=== PATIENT | male | born 1950 | race African-American/Black ===

== ENCOUNTER 2017-02-05 11:35 | Emergency (ER) | payer MEDICARE, BC ==
[2017-02-05 11:47] VITALS: TEMP 98.4; BMI 30.5
[2017-02-05] MEDS ORDERED: Albuterol-Ipratrop 3 mg / 0.5 (3 ml) UD IH STA (12:13)
--- NOTE | 2017-02-05 12:18 | ED PDOC ---
Arrival/HPI - General Chief Complaint: Shortness Of Breath Time Seen by Provider: 02/05/17 11:40 Historian: Patient - History of Present Illness Narrative History of Present Illness (Text): 02/05/17 12:15 Patient is a 66 yo male presents to ED with history of chest pain intermittently for the past two weeks. He reports developing left arm pain two weeks ago worse with movements, which resolved after taking Tylenol. He denies any known injury or trauma although patient reports arm pain now resolved. However over past two weeks he has developed progressive shortness of breath and left sided chest pain. He states pain was worse with coughing. Denies hemoptyis. Denies fevers. Denies pleuritic pain. Shortness of breath worse with exertion or movements. Denies calf pain or swelling. Denies headaches, denies fevers. Denies recent travel. States that he quit smoking when he was 20 years old. He denies recent prolonged travel. He denies any travel out of the country. Patient was evaluated by his PMD Dr. Reyes prior to arrival. PMD states patient noted to be short of breath on exam, sent from office for further evaluation. Time/Duration: > week Symptom Onset: Gradual Past Medical History - Cardiac Hx Cardiac Disorders: Yes Hx Hypertension: Yes Hx Pacemaker: No - Pulmonary Hx Respiratory Disorders: No - Neurological Hx Neurological Disorder: No Hx Paralysis: No - HEENT Hx HEENT Disorder: No - Renal Hx Renal Disorder: No - Endocrine/Metabolic Hx Endocrine Disorders: Yes Hx Diabetes Mellitus Type 2: Yes - Hematological/Oncological Hx Blood Disorders: Yes Hx Blood Transfusions: Yes Hx Blood Transfusion Reaction: No - Integumentary Hx Dermatological Disorder: No - Musculoskeletal/Rheumatological Hx Musculoskeletal Disorders: No - Gastrointestinal Hx Gastrointestinal Disorders: No - Genitourinary/Gynecological Hx Genitourinary Disorders: No - Psychiatric Hx Psychophysiologic Disorder: No Hx Emotional Abuse: No Hx Physical Abuse: No Hx Substance Use: No - Surgical History Hx Joint Replacement: Yes (knee) Hx Orthopedic Surgery: Yes - Anesthesia Hx Anesthesia Reactions: No Hx Malignant Hyperthermia: No - Suicidal Assessment Feels Threatened In Home Enviroment: No Family/Social History Family/Social History: denies: CAD/[place] Smoking Status: Former Smoker Hx Alcohol Use: No Hx Substance Use: No Allergies/Home Meds Allergies/Adverse Reactions: Allergies No Known Allergies Allergy (Verified 02/05/17 11:47) Home Medications: Home Meds Medication Instructions Recorded Confirmed Glimepiride [Amaryl] 4 mg PO BID 02/20/15 02/05/17 Metformin HCl [Metformin] 1,000 mg PO BID 02/20/15 02/05/17 Metoprolol Succinate [Toprol XL] 100 mg PO BID 02/20/15 02/05/17 Pregabalin [Lyrica] 100 mg PO BID 02/20/15 02/05/17 Aspirin [Aspirin EC] 325 mg PO DAILY 02/05/17 02/05/17 Atorvastatin [Lipitor] 10 mg PO DAILY 02/05/17 02/05/17 Lisinopril [Zestril] 10 mg PO DAILY 02/05/17 02/05/17 hydroCHLOROthiazide [Hydrodiuril] 25 mg PO DAILY 02/05/17 02/05/17 Review of Systems - Review of Systems Constitutional: Fatigue. absent: Fevers Eyes: absent: Vision Changes ENT: absent: Hearing Changes Respiratory: SOB. absent: Cough Cardiovascular: Chest Pain (with coughing), GUPTA. absent: Palpitations, Edema, Calf Pain, Orthopnea Gastrointestinal: absent: Abdominal Pain Genitourinary Male: absent: Dysuria, Frequency Musculoskeletal: absent: Back Pain Skin: Skin Lesions (right reina). absent: Rash Neurological: absent: Headache, Dizziness Endocrine: absent: Polyuria Hemo/Lymphatic: absent: Easy Bleeding, Easy Bruising Physical Exam Vital Signs Reviewed: Yes Vital Signs Temp Pulse Pulse Resp BP BP Pulse Ox 02/05/17 15:14 0 L 0 L 51/22 L 0 L 02/05/17 15:08 0 L 5 L 78/30 L 91 L 02/05/17 14:56 0 L 6 L 72/59 L 93 L 02/05/17 14:40 0 L 8 L 84/46 L 95 02/05/17 14:33 0 L 13 90/26 L 95 02/05/17 14:22 118 H 104/46 L 95 02/05/17 14:02 116 H 30 H 142/89 95 02/05/17 13:31 99 H 17 156/101 H 90 L 02/05/17 13:13 86 18 153/111 H 97 02/05/17 11:50 95 H 16 164/98 H 02/05/17 11:46 98.4 F 95 H 18 164/98 H 95 Temperature: Afebrile Respiratory Rate: Tachypneic Appearance: Positive for: Non-Toxic Pain Distress: Mild Finger Stick Blood Glucose: 240 - Systems Exam Head: Present: Atraumatic Pupils: Present: PERRL Extroacular Muscles: Present: EOMI Mouth: Present: Moist Mucous Membranes Pharnyx: No: ERYTHEMA Nose (Internal): Present: Normal Inspection Neck: Present: Normal Range of Motion Respiratory/Chest: Present: Other (mild expiratory wheezing, rales at left base , mildly tachypneic) Cardiovascular: Present: Regular Rate and Rhythm, Murmurs Abdomen: No: Tenderness, Distention Rectal: No: Gross Blood Back: No: CVA Tenderness, Midline Tenderness Upper Extremity: No: Cyanosis, Edema Lower Extremity: Present: Normal ROM, Other (dressing to left lower extremity, ulcer present). No: Edema, CALF TENDERNESS Neurological: Present: Motor Func Grossly Intact, Normal Sensory Function Skin: Present: Warm Psychiatric: Present: Alert Medical Decision Making ED Course and Treatment: Patient's case reviewed with Dr. Reyes prior to arrival. Patient had presented to Dr. Reyes for history of intermittent left arm and chest pain. He states that he had been coughing since last week as well. He reports intermittent chest pain but "only when I cough", and currently denies any chest pain in the ER. He states chest pain occurred when he moved his arm or when he coughed. He denies calf pain. He denies chest pain with deep breaths. Denies hemoptysis. He is currently not a smoker. No recent prolonged travel or history of prolonged immobilization. There is no calf pain or edema. No prior history of dvt or pulmonary embolism. Denies chest pain with exertion. On triage, oxygen saturations were 95% on room air. He is wheezing. Denies prior history of asthma or needing an inhaler. Patient had EKG obtained upon arrival. EKG at 11:44 reveals normal sinus rhythm rate of 95 with incomplete right bundle branch block. Reportedly the patient has had a negative stress test in the past. Patient states he took his medication including aspirin and blood pressure medication today prior to arrival. He denies any chest pain currently. Patient noted to have mild wheezing on examination. Duoneb ordered. He was reassessed and updated with treatment plan, on re-exam denies chest pain. Wheezing persistent. Chest xray reading as per radiologist as follows: Chest X-ray Professional Bass Fisher : Tyler Westfall MD Report Date : 02/05/2017 12:17:26 IMPRESSION: Bilateral subsegmental atelectasis. No acute infiltrate. Chest xray reading reviewed with patient, discussed differential diagnosis with patient. BNP elevated, although no JVD, no calf edema. Cannot exclude possibly pulmonary vascular congestion on chest xray. D-dimer elevated. CT Angio ordered. Heparin drip ordered pending CT. Patient updated with treatment plan, he continues to deny any chest pain or pleuritic discomfort. Saturations noted to be 89-90% on 2 liters nasal cannula at 13:31. Increased oxygen via NC ordered. Case discussed with clinical rn Dr. Mcahelle Dupree for admission of patient to the ICU, due to patient's hypoxia and risk factors for CAD, PE. I was called to patient's bedside as he was acutely noted to become diaphoretic and more short of breath. On my examination the patient was diaphoretic, confused, blood pressure 153/111 , heart rate noted to be progressively bradycardic, on the monitor frequent PVCs and heart rate 30s, weak pulse. Patient placed on high flow oxygen immediately and patient was arousable, became more alert and able to converse, stated that he was developing chest pain and felt more short of breath. Heart rate accelerated to sinus tachycardia rate of 160-170. Repeat EKG obtained as there are st elevations noted on supervisor jewelry department and tachycardia noted. EKG at 13:51 reveals sinus tachycardia with right bundle branch block, st elevations noted in the inferior leads. Repeat blood pressure 140/102. No hypotension noted. Differential diagnosis at this time included myocardial infarction vs. pulmonary embolism. Blood pressure remained elevated with serial blood pressures. He continued to have chest discomfort on re-evaluation and became more labored with his breathing, diaphoretic, complaining of chest pain. Code Heart called due to acute st elevations from initial EKG,and emergency cardiology consultation obtained with Dr. Mirza, roof slater as per Dr. Reyes. Reviewed differential of myocardial infarction vs pulmonary embolism based on EKG findings. No hypotension noted. Based on progressive respiratory distress, patient prepared for intubation. Indications reviewed with patient he expresses understanding although he is labored with his breathing and tachypneic. Patient preoxygenated. Separator Tender called to bedside given patient's deterioration in condition. Patient sedated with Etomidate 20 mg iv. Patient paralyzed with Succinylcholine 100 mg iv. Initial attempt at intubation with 7.5 et tube performed by me, vocal cords visualized although unable to pass ET tube through vocal cords after single attempt. Patient ventilated via bag valve mask with adequate oxygenation. Patient subsequently intubated by Dr. Dupree clinical rn. Breath sounds were found to be equal bilaterally post intubation. Patient noted to have appropriate change on C02 detector post intubation. ET tube secured. Post intubation patient again developed bradycardia. Patient became bradycardic with loss of pulses at 14:14. CPR initiated. Epinephrine administered. CPR continued. Return of weak carotid pulse noted at 14:22. Production Tester at bedside. Separator Tender at bedside. Levophed drip initiated. Dr. Mirza at bedside. Patient too unstable for cardiac catheterization, specialists also consulted for emergent echo or right heart catheterization. Production Tester performed bedside ultrasound to assess right ventricular function, although patient at 1434 became pulseless and CPR again initiated. Epinephrine boluses, bicarbonate administered. Patient remained in PEA rhythm despite continued CPR with boluses of epinephrine and bicarbonate. Central line placed by ICU team. ABG reviewed. K reviewed to be 4.7 at 13:00. Epinephrine drip ordered. Patient did not have return of pulses despite prolonged CPR. Patient pronounced at 15:14. No pulses. No spontaeous respirations. No heat beat auscultated. Dr. Edgardo Reyes updated. I updated patient's son, Lilian, with patients outcome. Patient's significant other was also updated as well as patient's other family members. - Critical Care Critical Care Minutes: 90 minutes - Lab Interpretations Microbiology Results: Microbiology Results 02/05/17 12:22 Blood Blood Culture - Preliminary NO GROWTH AFTER 48 HOURS 02/05/17 12:45 Urine Urine Culture - Final No Growth (<1,000 CFU/ML) 02/05/17 12:22 Blood S.aureus & Coag-Neg Staph PNA FISH - Final 02/05/17 12:22 Blood Blood Culture - Final Gram Positive Cocci 02/05/17 12:22 Blood Gram Stain - Final Lab Results: 02/05/17 12:22 02/05/17 13:00 Lab Results 02/05/17 14:50: pCO2 69 H, pO2 43.0 L*, HCO3 25.8, ABG pH 7.18 L*, ABG Total CO2 27.9, ABG O2 Saturation 68.4 L, ABG Base Excess -4.0 L, ABG Potassium 7.6 H* , Sodium 149.0 H, Chloride 116.0 H, Glucose 265 H, Lactate 10.6 H*, FiO2 100.0, Arterial Blood Potassium 7.6 H* 02/05/17 13:00: Sodium 138, Chloride 102, Potassium 4.7, Carbon Dioxide 29, Anion Gap 12, BUN 33 H, Creatinine 1.4, Est GFR ( Amer) > 60, Est GFR ( Non-Af Amer) 51, Random Glucose 240 H, Calcium 8.6, Total Bilirubin 1.0, AST 46 , ALT 91 H, Alkaline Phosphatase 71, Lactate Dehydrogenase 938 H, Total Creatine Kinase 160, Troponin I 0.03, NT-Pro-B Natriuret Pep 2550 H, Total Protein 6.4, Albumin 3.3, Globulin 3.2, Albumin/Globulin Ratio 1.0 L 02/05/17 12:51: D-Dimer, Quantitative 31.08 H 02/05/17 12:45: Urine Color Yellow, Urine Appearance Clear, Urine pH 6.0, Ur Specific [place] 1.025, Urine Protein >=300 H, Urine Glucose (UA) 100 H, Urine Ketones Trace H, Urine Blood Moderate H, Urine Nitrate Negative, Urine Bilirubin Small H, Urine Urobilinogen 4.0 H, Ur Leukocyte Esterase Negative, Urine RBC 1 - 3, Urine WBC 0 - 2, Ur Epithelial Cells 0 - 2, Urine Bacteria Small 02/05/17 12:28: pO2 38, VBG pH 7.33, VBG pCO2 59.0, VBG HCO3 31.1 H, VBG Total CO2 32.9 H, VBG O2 Sat (Calc) 69.7 H, VBG Base Excess 3.6 H, VBG Potassium 6.1 H , Sodium 135.0, Chloride 106.0, Glucose 250 H, Lactate 1.2, FiO2 21.0, Venous Blood Potassium 6.1 H 02/05/17 12:22: Influenza Typ A,B (EIA) Negative for flu a/b 02/05/17 12:22: PT 11.7, INR 1.08, APTT 27.2 02/05/17 12:22: WBC 6.6, RBC 4.53, Hgb 13.9 L, Hct 40.6 L, MCV 89.6, MCH 30.7, MCHC 34.2, RDW 14.7 H, Plt Count 228, MPV 11.9 H, Gran % 69.6 H, Lymph % (Auto) 16.6 L, [place] % (Auto) 10.3 H, Eos % (Auto) 3.2, Baso % (Auto) 0.3, Gran # 4.62, Lymph # 1.1 L, [place] # 0.7 H, Eos # 0.2, Baso # 0.02 02/05/17 12:03: POC Glucose (mg/dL) 240 H I have reviewed the lab results: Yes - RAD Interpretation Radiology Orders: 02/05/17 11:54 CHEST PORTABLE [RAD] Stat - EKG Interpretation Interpreted by ED Physician: Yes Type: 12 lead EKG Comparison: No previous EKG avail. - Medication Orders Current Medication Orders: Discontinued Medications Albuterol/Ipratropium (Duoneb 3 Mg/0.5 Mg (3 Ml) Ud) 3 ml IH STAT STA Stop: 02/05/17 12:14 Last Admin: 02/05/17 12:40 Dose: 3 ml Alteplase, Recombinant (Activase 100 Mg Inj) 10 mg IVPB ONCE ONE Stop: 02/05/17 14:31 Last Admin: 02/06/17 00:31 Dose: Aspirin (Aspirin) Confirm Administered Dose 325 mg .ROUTE .STK-MED ONE Stop: 02/05/17 14:00 Last Admin: 02/06/17 00:22 Dose: Atropine Sulfate (Atropine) Confirm Administered Dose 1 mg .ROUTE .STK-MED ONE Stop: 02/05/17 13:59 Clopidogrel Bisulfate (Plavix) Confirm Administered Dose 600 mg .ROUTE .STK-MED ONE Stop: 02/05/17 14:00 Last Admin: 02/06/17 00:22 Dose: Epinephrine Bitartrate (Epinephrine) Confirm Administered Dose 1 mg .ROUTE .STK- MED ONE Stop: 02/05/17 15:02 Last Admin: 02/06/17 00:34 Dose: Epinephrine HCl (Epinephrine) Confirm Administered Dose 1 mg .ROUTE .STK-MED ONE Stop: 02/05/17 15:02 Last Admin: 02/05/17 15:03 Dose: 1 mg Etomidate (Amidate) Confirm Administered Dose 40 mg IV .ST-MED ONE Stop: 02/05/17 14:01 Etomidate (Amidate) Confirm Administered Dose 40 mg IV .STK-MED ONE Stop: 02/05/17 14:02 Last Admin: 02/05/17 14:02 Dose: 20 mg Fentanyl (Fentanyl) Confirm Administered Dose 100 mcg .ROUTE .ST-MED ONE Stop: 02/05/17 14:07 Heparin Sodium (Porcine) (Heparin) 8,200 units 80 units/kg (8200 units) IV ONCE ONE PRN Reason: Protocol Stop: 02/05/17 13:39 Last Admin: 02/06/17 00:21 Dose: Heparin Sodium (Porcine) (Heparin) Confirm Administered Dose 5,000 units .ROUTE .ST-MED ONE Stop: 02/05/17 14:01 Last Admin: 02/05/17 14:00 Dose: 5,000 units Heparin Sodium (Porcine) (Heparin) Confirm Administered Dose 10,000 units .ROUTE .[facility]-MED ONE Stop: 02/05/17 14:02 Heparin Sodium/Sodium Chloride (Heparin 88371 Units/250ml 1/2 Normal Saline) 25 ,000 units in 250 mls @ 18.37 mls/hr IV .[id number] PRN; Protocol; 18 UNITS/KG/HR PRN Reason: ADJUST RATE PER PROTOCOL Heparin Sodium (Porcine) (Heparin 1000 Units/500 Ml Ns) Confirm Administered Dose 1,500 mls @ ud IV .ST-MED ONE Stop: 02/05/17 13:59 Nitroglycerin/Dextrose (Nitroglycerin 50 Mg/250 Ml D5w) Confirm Administered Dose 50 mg in 250 mls @ ud IV .ST-MED ONE Stop: 02/05/17 14:16 Alteplase, Recombinant 90 mg/ (Sterile Water) 100 mls @ 50 mls/hr IV ONCE ONE PRN Reason: Protocol Stop: 02/05/17 16:29 Last Admin: 02/06/17 00:32 Dose: Iodixanol (Visipaque 320 Mg/Ml 200 Ml) Confirm Administered Dose 200 ml IV .STK- MED ONE Stop: 02/05/17 13:59 Iodixanol (Visipaque 320 Mg/Ml 100 Ml) Confirm Administered Dose 100 ml IV .STK- MED ONE Stop: 02/05/17 14:13 Iohexol (Omnipaque 350mg/Ml 50 Ml) Confirm Administered Dose 50 ml .ROUTE .STK- MED ONE Stop: 02/05/17 14:00 Lidocaine HCl (Lidocaine 2% 20ml Vial) Confirm Administered Dose 20 ml .ROUTE .STK-MED ONE Stop: 02/05/17 13:59 Midazolam HCl (Versed Inj) Confirm Administered Dose 2 mg .ROUTE .STK-MED ONE Stop: 02/05/17 14:07 Phenylephrine HCl (Phenylephrine Inj) Confirm Administered Dose 10 mg .ROUTE .STK-MED ONE Stop: 02/05/17 14:00 Sodium Bicarbonate (Sodium Bicarbonate (8.4%) 50 Meq Syringe) Confirm Administered Dose 100 meq .ROUTE .STK-MED ONE Stop: 02/05/17 14:51 Last Admin: 02/05/17 14:51 Dose: 100 meq Succinylcholine Chloride (Quelicin) Confirm Administered Dose 200 mg IV .STK- MED ONE Stop: 02/05/17 14:01 Last Admin: 02/05/17 14:01 Dose: 200 mg Disposition/Present on Arrival - Present on Arrival Any Indicators Present on Arrival: No History of DVT/PE: No History of Uncontrolled Diabetes: No Urinary Catheter: No History of Decub. Ulcer: No History Surgical Site Infection Following: None - Disposition Have Diagnosis and Disposition been Completed?: Yes Diagnosis: Dyspnea, Cardiac arrest Disposition: WITH WITHOUT AUTOPSY Disposition Time: 15:15 Patient Plan: Discharge Condition: CRITICAL Referrals: Rommel Reyes MD [Primary Care Provider] - Follow up with primary
--- NOTE | 2017-02-05 12:19 | RAD ---
HISTORY: sob COMPARISON: 02/04/2015 FINDINGS: LUNGS: Bibasilar subsegmental atelectasis. Low lung volumes with bronchovascular crowding. PLEURA: No significant pleural effusion identified, no pneumothorax apparent. CARDIOVASCULAR: Normal. OSSEOUS STRUCTURES: No significant abnormalities. VISUALIZED UPPER ABDOMEN: Normal. OTHER FINDINGS: None. IMPRESSION: Bilateral subsegmental atelectasis. No acute infiltrate.
[2017-02-05 12:24] LABS: ADD MANUAL DIFF? NO
[2017-02-05 12:29] LABS: BASO # 0.02 K/mm3 (0.0-2.0); BASO % 0.3 % (0.0-3.0); EOS # 0.2 (0.0-0.7); EOS % 3.2 % (1.5-5.0); GRAN # 4.62 (1.4-6.5); GRAN % 69.6 % (50.0-68.0); HEMATOCRIT 40.6 % (42.0-52.0); LYMPH # 1.1 (1.2-3.4); LYMPH % 16.6 % (22.0-35.0); MEAN CELL VOLUME 89.6 fL (80.0-105.0); MEAN CORPUSCULAR HEMOGLOBIN 30.7 pg (25.0-35.0); MEAN CORPUSCULAR HGB CONC 34.2 g/dl (31.0-37.0); MEAN PLATELET VOLUME 11.9 fl (7.0-11.0); MONO # 0.7 (0.1-0.6); MONO % 10.3 % (1.0-6.0); PLATELET COUNT 228 10^3/uL (120.0-450.0); RED CELL DISTRIBUTION WIDTH 14.7 % (11.5-14.5); WHITE BLOOD COUNT 6.6 10^3/ul (4.5-11.0)
[2017-02-05 12:33] LABS: VENOUS BLOOD GAS BASE EXCESS 3.6 mmol/L (0.0-2.0); VENOUS BLOOD PH 7.33 (7.32-7.43)
[2017-02-05 12:41] LABS: INR 1.08 (0.93-1.08); PARTIAL THROMBOPLASTIN TIME 27.2 Seconds (23.7-30.8)
[2017-02-05 12:53] LABS: URINE BILIRUBIN SMALL (NEGATIVE); URINE BLOOD MODERATE (NEGATIVE); URINE GLUCOSE (UA) 100 mg/dL (NEGATIVE); URINE KETONE TRACE mg/dL (NEGATIVE); URINE LEUKOCYTE ESTERASE NEGATIVE Leu/uL (NEGATIVE); URINE PROTEIN >=300 mg/dL (<30 mg/dL)
[2017-02-05 12:58] LABS: URINE APPEARANCE CLEAR (CLEAR); URINE COLOR YELLOW (YELLOW)
[2017-02-05 13:19] LABS: ALKALINE PHOSPHATASE 71 U/L (38-133); ALT/SGPT 91 U/L (7-56); AST/SGOT 46 U/L (15-59); BLOOD UREA NITROGEN 33 mg/dL (7-21); CALCIUM 8.6 mg/dL (8.4-10.5); CARBON DIOXIDE 29 mmol/L (21-33); CHLORIDE 102 mmol/L (98-107); GFR AFRICAN-AMERICAN > 60; GLUCOSE,RANDOM 240 mg/dL (70-110); POTASSIUM 4.7 mmol/L (3.6-5.0); SODIUM 138 mmol/L (132-148); TOTAL PROTEIN 6.4 g/dL (5.8-8.3)
[2017-02-05 13:30] LABS: TROPONIN I 0.03 ng/mL
[2017-02-05 13:38] LABS: URINE BACTERIA SMALL (NEG); URINE EPITHELIAL CELLS 0 - 2 /hpf (0-5); URINE WBC 0 - 2 /hpf (0-6)
[2017-02-05] MEDS ORDERED: Heparin25000 units/250ml 1/2NS 25,000 UNITS/250 ML BAG IV PRN (13:38)
[2017-02-05] MEDS ORDERED: Lidocaine 2% Inj (20ml) ONE (13:58)
[2017-02-05] MEDS ORDERED: Iodixanol 320 MG/ML 200 ML BOTTLE IV ONE (13:58)
[2017-02-05] MEDS ORDERED: Phenylephrine 10 mg/ml Inj ONE (13:59)
[2017-02-05] MEDS ORDERED: Iohexol 350mgl/ml 50 ML ONE (13:59)
[2017-02-05] MEDS ORDERED: Etomidate 20 mg/10ml Inj IV ONE ×2 (14:00→14:01)
[2017-02-05] MEDS ORDERED: Succinylcholine 200 mg/10 ml Inj IV ONE (14:00)
[2017-02-05] MEDS ORDERED: Midazolam 2 MG/2 ML VIAL ONE (14:06)
[2017-02-05] MEDS ORDERED: Iodixanol 320 MG/ML 100 ML BOTTLE IV ONE (14:12)
[2017-02-05] MEDS ORDERED: Nitroglycerin 50mg in D5W 50 MG/250 ML BOTTLE IV ONE (14:15)
[2017-02-05] MEDS ORDERED: ALTEPLASE IV ONE (14:30)
[2017-02-05] MEDS ORDERED: WATER FOR INJECTION IV ONE (14:30)
[2017-02-05] MEDS ORDERED: Sodium Bicarbonate (8.4%) 50 Meq Syringe ONE (14:50)
[2017-02-05 15:01] LABS: ARTERIAL BLOOD GAS HCO3 25.8 mmol/L (21-28)
[2017-02-05] MEDS ORDERED: EPINEPHrine 1 mg/ml (1:1000) Inj ONE (15:01)
[2017-02-05 15:05] LABS: ARTERIAL BLOOD GAS PH 7.18 (7.35-7.45)
--- NOTE | 2017-02-05 15:45 | CP.PCM.PN ---
Subjective - Date & Time of Evaluation Date of Evaluation: 02/05/17 Time of Evaluation: 14:30 - Subjective Subjective: 66 y/o M for which I was called to the ER emergently due to increased SOB, Dyspnea , diaphoresis and general concern for PE vs ACS. Upon arriving to the ER , pt was seen to have agonal breathing and ER team was intubating. Difficult intubation was noted by the ER physician and I was asked for assistance. Intubation was achieved w/ Bougie/ Glidescope . Pt at that time was Bradycardic / junctional. Subsequently the patient was seen to have no Pulses, and ACLS protocol was started . 45 min of ACLS protocol was administered and emergent TLC L groin was placed and Levophed and EPI drip was started in addition to the ACLS protocol. The patient was resistant to any medications to keep an active pulse. ALCS protocol with multiple medications were given as the code sheet documents . STAT bedside ECHO was done w/ Client Care Specialist at bedside, which suggested global hypokinesis . No particular signs of overt RV failure, "D" sign or Tamponade. Multiple attempt were made to stabilize the patient in hopes to take the patient to cardiac cath, unfortunately the patient was not able to withstand the resuscitation . cc time 72 min Objective - Vital Signs/Intake and Output Vital Signs (last 24 hours): Temp Pulse Resp BP Pulse Ox 98.4 F 99 H 17 153/111 H 90 L 02/05/17 11:46 02/05/17 13:31 02/05/17 13:31 02/05/17 13:31 02/05/17 13:31 - Medications Medications: Current Medications Heparin Sodium/Sodium Chloride (Heparin 38756 Units/250ml 1/2 Normal Saline) 25 ,000 units in 250 mls @ 18.37 mls/hr IV .[id number] PRN; Protocol; 18 UNITS/KG/HR PRN Reason: ADJUST RATE PER PROTOCOL Alteplase, Recombinant 90 mg/ (Sterile Water) 100 mls @ 50 mls/hr IV ONCE ONE PRN Reason: Protocol Stop: 02/05/17 16:29 - Labs Labs: 02/05/17 12:22 02/05/17 13:00 PT 11.7 Seconds (9.9-11.8) 02/05/17 12:22 INR 1.08 (0.93-1.08) 02/05/17 12:22 APTT 27.2 Seconds (23.7-30.8) 02/05/17 12:22
--- NOTE | 2017-02-05 20:48 | CON ---
DATE: 02/05/2017 REQUESTING PHYSICIAN: Dr. Martin. REASON FOR CONSULTATION: Possible acute myocardial infarction. HISTORY OF PRESENT ILLNESS: This is a 66-year-old man who was sent to the Emergency Room by Dr. Baltazar casiano from his office. He had been seen by Dr. Reyes last week for complaints of arm pain, which was wor se with movement. Over the past several days, he has had worsening dyspnea. He was seen by Dr. Baltazar casiano in the office earlier today and was noted to be hypoxic. He was sent to the Emergency Room urgentl y. Initial EKG was nonspecific. However, repeat EKG showed possible ST elevations and emergency cat heterization was advised. The laborer road team was mobilized; however, he developed respiratory distres s in the Emergency Room and was intubated. He subsequently suffered a cardiac arrest and CPR was ini tiated. He fluctuated between pulseless electrical activity and asystole. When seen in the Emergenc y Room, he was intubated and hypotensive. He subsequently had recurrent cardiac arrest requiring ACL S intervention. According to the chart, he has a history of hypertension and diabetes. He was a smo ker. FAMILY HISTORY: Unavailable. MEDICATIONS: At home reportedly included Amaryl, metformin, Toprol-XL, Lyrica, aspirin, Lipitor, Zes tril, and hydrochlorothiazide. ALLERGIES: No known allergies. SOCIAL HISTORY: As mentioned, he was a smoker. PAST MEDICAL HISTORY: Prior left knee replacement. REVIEW OF SYSTEMS: Unobtainable because of his current state. PHYSICAL EXAMINATION: GENERAL: He is a middle-aged man who is orally intubated. VITAL SIGNS: His initial blood pressure was reportedly 160/98 with a pulse of 96, respirations are 1 8. He was afebrile upon admission. Physical exam was limited, but pulses were diminished. Extremities were cool. Breath sounds were eq ual bilaterally. A bedside echocardiogram was performed showing severe global hypokinesis and dilated right ventricle due to his hypotensive state. This was fairly nondiagnostic. Blood work revealed a white count of 6.6, hemoglobin and hematocrit 13.9 and 40.6 with a platelet cou nt of 228,000. Potassium 4.7, BUN and creatinine 33 and 1.4. Glucose is 240. PT, PTT were normal. Venous blood gas showed pH 7.33, pCO2 was 59 with a pO2 of 38. During the code, his pH was 7.18. Multiple rounds of epinephrine and bicarbonate as well as calcium were administered. A triple lumen catheter was inserted in the left femoral vein. Thoughts were given to possible thrombolysis or poss ible presumed pulmonary embolus. However, there was prolonged CPR and instability and this was not a ppropriate. Prolonged CPR was then performed for up to 30 minutes and with no evidence of restoratio n of spontaneous circulation. The patient was pronounced at 3:15. Dr. Reyes was contacted in the office. Attempts are being made to reach the family. Bernardo Mirza MD cc: [id number] TT: 02/05/2017 20:48:02 Confirmation # [id number] Dictation # [id number] [email or web address]
--- NOTE | 2017-02-05 22:28 | CP.PCM.PN ---
<Leandro Ortiz - Last Filed: 02/05/17 23:19> Subjective - Date & Time of Evaluation Date of Evaluation: 02/05/17 Time of Evaluation: 15:00 - Subjective Subjective: Code Heart was called in the ED. Upon arrival pt. was unstable and unable to protect his airways and had to be intubated. Pt went into PEA and ACLS protocol was initiated. Multiple rounds of chest compressions, epinephrine and bicarb were given. Pt's pulses did return, but could not maintain. A central line was placed in his femoral vein for a EPI and levophed drip. However, pt. was not responding to treatment. ECHO at bedside showed global hypokinesis with cardiology present. After, approximately 45min of ACLS protocal was administered , pt. . Objective - Vital Signs/Intake and Output Vital Signs (last 24 hours): Temp Pulse Resp BP Pulse Ox 98.4 F 99 H 17 153/111 H 90 L 02/05/17 11:46 02/05/17 13:31 02/05/17 13:31 02/05/17 13:31 02/05/17 13:31 - Medications Medications: Current Medications Heparin Sodium/Sodium Chloride (Heparin 52124 Units/250ml 1/2 Normal Saline) 25 ,000 units in 250 mls @ 18.37 mls/hr IV .[id number] PRN; Protocol; 18 UNITS/KG/HR PRN Reason: ADJUST RATE PER PROTOCOL - Labs Labs: 02/05/17 12:22 02/05/17 13:00 PT 11.7 Seconds (9.9-11.8) 02/05/17 12:22 INR 1.08 (0.93-1.08) 02/05/17 12:22 APTT 27.2 Seconds (23.7-30.8) 02/05/17 12:22 <Kati Caruso - Last Filed: 02/06/17 11:15> Objective - Vital Signs/Intake and Output Vital Signs (last 24 hours): Temp Pulse Resp BP Pulse Ox 98.4 F 0 L 0 L 51/22 L 0 L 02/05/17 11:46 02/05/17 15:14 02/05/17 15:14 02/05/17 15:14 02/05/17 15:14 - Labs Labs: 02/05/17 12:22 02/05/17 13:00 PT 11.7 Seconds (9.9-11.8) 02/05/17 12:22 INR 1.08 (0.93-1.08) 02/05/17 12:22 APTT 27.2 Seconds (23.7-30.8) 02/05/17 12:22 Attending/Attestation - Attestation I have personally seen and examined this patient.: No I have fully participated in the care of the patient.: No I have reviewed all pertinent clinical information, including history, physical exam and plan: Yes Notes (Text): 02/06/17 10:27 Responded stat to "Code heart in the ER" He was being evaluated and treated by ER MD Dr DUONG. Pt was still in the ER when his respiratory distress worsened and he was intubated,After that he went into bradycardia,then PEA..ALS protocol was followed,but pt could not be resuscitated. 02/06/17 10:52 ER notes reviewed. 02/06/17 11:14
[2017-02-06 00:15] VITALS: PULSE 0
[2017-02-06 00:21] VITALS: BP 51/22; RESP 0; O2SAT 0
--- NOTE | 2017-02-06 09:35 | CARD ---
APPROVED REPORT EKG Measurement Heart [id number] [place] [id number] <Conclusion> Normal sinus rhythm Possible Left atrial enlargement Incomplete right bundle branch block PRWP Left ventricular hypertrophy Inferior infarct, age undetermined Prolonged QTc
--- NOTE | 2017-02-06 09:50 | CARD ---
APPROVED REPORT EKG Measurement Heart [id number] [place] [id number] [id number] <Conclusion> AF with RVR, new RBBB IMI, age unknown, possible acute
--- NOTE | 2017-02-06 09:53 | CARD ---
APPROVED REPORT EKG Measurement Heart [id number] NE 188P [id number] <Conclusion> Sinus rhythm, new Right bundle branch block Inferior infarct, age undetermined, possible acute AF no longer present.
== END 2017-02-05 15:14 ==
LOC: ED 11:35
DX: R06.00 Dyspnea, unspecified (principal); I46.9 Cardiac arrest, cause unspecified
CPT/HCPCS: 31500; 71010; 80053; 81001; 82550; 82803; 82948; 83615; 83880; 84484; 85025; 85378; 85610; 85730; 87040; 87086; 87149; 87205; 87804; 92950; 93005; 94640; 99291; 99292; J0171; J0330; J1644; Q9967